=== PATIENT | female | born 1940 | race African-American/Black ===

== ENCOUNTER 2024-10-21 12:03 | Inpatient (IN) | payer MEDICARE, OTHER ==
[~2024-10-21] VITALS: Ht 154.9 cm; Wt 55.3 kg
[2024-10-21 14:08] LABS: CALCIUM, SERUM 8.6 mg/dL (8.5-10.1); CREATININE 0.6 mg/dL (0.6-1.3); POTASSIUM 4.8 mmol/L (3.5-5.1)
[2024-10-21 14:09] LABS: BASOPHILS % (AUTO) 0.4 % (0.0-2.0); EOSINOPHILS # (AUTO) 0.1 K/uL (0.0-0.7); EOSINOPHILS % (AUTO) 0.9 % (0.0-6.0); HEMATOCRIT 25 % (33-45); HEMOGLOBIN 8.3 g/dL (11.5-14.8); LYMPHOCYTES # (AUTO) 2.1 K/uL (0.8-4.8); LYMPHOCYTES % (AUTO) 32.5 % (20.0-44.0); MEAN CORPUSCULAR HEMOGLOBIN 29 PG (26.0-33.0); MEAN CORPUSCULAR HGB CONC 33 g/dl (31.0-36.0); MEAN CORPUSCULAR VOLUME 86 fL (82-100); MONOCYTES # (AUTO) 0.4 K/uL (0.1-1.30); MONOCYTES % (AUTO) 6.2 % (2.0-12.0); NEUTROPHILS # (AUTO) 3.9 K/uL (1.8-8.9); PLATELET COUNT (AUTO) 295 K/uL (150-450); RED BLOOD CELL COUNT(AUTO) 2.91 MIL/uL (4.0-5.2); WHITE BLOOD COUNT (AUTO) 6.5 K/uL (4.3-11.0)
[2024-10-21 14:14] LABS: BILIRUBIN,TOTAL 0.2 mg/dL (0.2-1.0); TOTAL PROTEIN, SERUM 5.9 g/dL (6.4-8.2)
[2024-10-21 14:15] LABS: INR 1.04 (0.91-1.10); PARTIAL THROMBOPLASTIN TIME 25.8 SEC (24.3-34.3)
[2024-10-21 14:50] LABS: NT-PRO BNP 372 pg/mL (0-125)
[2024-10-21] MEDS ORDERED: ASPI-1169 PO (17:10)
[2024-10-21] MEDS ORDERED: SITA100T PO (17:10)
[2024-10-21] MEDS ORDERED: AMLO10TA4 PO (17:10)
[2024-10-21] MEDS ORDERED: ACET-2030 PO (17:10)
[2024-10-21] MEDS ORDERED: INSU100I4 SQ (17:10)
[2024-10-21] MEDS ORDERED: MUPI22OI7 TP (17:10)
[2024-10-21] MEDS ORDERED: APIX2.5T PO (17:10)
[2024-10-21] MEDS ORDERED: INSU100V7 SQ (17:10)
[2024-10-21] MEDS ORDERED: GABA100C PO (17:10)
[2024-10-21] MEDS ORDERED: FAMO20TA80 PO (17:10)
[2024-10-21] MEDS ORDERED: ATOR20TA PO (17:10)
[2024-10-21] MEDS ORDERED: TRAM50TA2 PO (17:10)
[2024-10-21] MEDS ORDERED: DOCU100T2 PO (17:10)
[2024-10-21] MEDS ORDERED: GABAPENTIN 100 MG CAPSULE PO PRN (17:30)
[2024-10-21] MEDS ORDERED: ZOLPIDEM TARTRATE 5 MG TABLET PO PRN (17:30)
[2024-10-21] MEDS ORDERED: MUPIROCIN OINT 2% 22 GM TUBE TP SCH (17:30)
[2024-10-21] MEDS ORDERED: DEXTROSE 50%-WATER 50 ML DISP.SYRIN IV PRN (17:30)
[2024-10-21] MEDS ORDERED: ONDANSETRON HCL/PF 4 MG/2 ML VIAL IVP PRN (17:30)
[2024-10-21] MEDS ORDERED: MAG HYDROX/AL HYDROX/SIMETH 30 ML UDC PO PRN (17:30)
[2024-10-21] MEDS ORDERED: Z GUARD REMEDY 4 OZ OINT TP PRN (17:30)
[2024-10-21] MEDS ORDERED: ACETAMINOPHEN 325 MG TABLET PO PRN (17:30)
[2024-10-21] MEDS: PANTOPRAZOLE 80 MG in IV NS 0.9% 500 ML IV ONE (17:31)
[2024-10-21] MEDS: TRAMADOL HCL 50 MG TABLET PO SCH (18:00)
[2024-10-21] MEDS: BLOOD SUGAR DIAGNOSTIC 1 EACH STRIP VI SCH (18:20)
[2024-10-21] MEDS: *INSULIN REGULAR(HUMULIN R)HUM 100 UNIT/ML VIAL SQ PRN (18:21)
[2024-10-21 18:46] VITALS: BP 169/64; TEMP 97.7; O2SAT 100
[2024-10-21] MEDS: ATORVASTATIN 10 MG TABLET PO SCH (21:27)
[2024-10-21] MEDS: MAGNESIUM HYDROXIDE 30 ML UDC PO PRN (21:38)
[2024-10-22] MEDS: ACETAMINOPHEN ES 500 MG TABLET PO PRN (04:25)
[2024-10-22 07:24] LABS: BASOPHILS % (AUTO) 0.4 % (0.0-2.0); EOSINOPHILS # (AUTO) 0.1 K/uL (0.0-0.7); HEMATOCRIT 21 % (33-45); HEMOGLOBIN 7.3 g/dL (11.5-14.8); LYMPHOCYTES # (AUTO) 1.5 K/uL (0.8-4.8); LYMPHOCYTES % (AUTO) 33.9 % (20.0-44.0); MEAN CORPUSCULAR HEMOGLOBIN 29 PG (26.0-33.0); MEAN CORPUSCULAR HGB CONC 34 g/dl (31.0-36.0); MEAN CORPUSCULAR VOLUME 84 fL (82-100); MONOCYTES # (AUTO) 0.4 K/uL (0.1-1.30); MONOCYTES % (AUTO) 8.8 % (2.0-12.0); NEUTROPHILS # (AUTO) 2.4 K/uL (1.8-8.9); NEUTROPHILS % (AUTO) 53.9 % (43.0-81.0); PLATELET COUNT (AUTO) 240 K/uL (150-450); RED BLOOD CELL COUNT(AUTO) 2.53 MIL/uL (4.0-5.2); RED CELL DISTRIBUTION WIDTH 16.5 % (11.5-15.0); WHITE BLOOD COUNT (AUTO) 4.5 K/uL (4.3-11.0)
[2024-10-22] MEDS: LINAGLIPTIN 5 MG TABLET PO SCH (08:31)
[2024-10-22] MEDS: AMLODIPINE BESYLATE 10 MG TABLET PO SCH (08:31)
[2024-10-22] MEDS: PANTOPRAZOLE 40 MG VIAL IV SCH (08:32)
[2024-10-22 09:20] LABS: CALCIUM, SERUM 8.2 mg/dL (8.5-10.1); CREATININE 0.7 mg/dL (0.6-1.3); MAGNESIUM 2.4 mg/dL (1.8-2.4); PHOSPHORUS 3.4 mg/dL (2.5-4.9); POTASSIUM 4.4 mmol/L (3.5-5.1)
[2024-10-22] MEDS: INSULIN REGULAR, HUMAN 100 UNIT/ML 3 ML VIAL SQ PRN (16:45)
[2024-10-22 20:00] VITALS: BP 146/60; TEMP 97.9; O2SAT 100
[2024-10-23 07:11] LABS: BASOPHILS % (AUTO) 0.5 % (0.0-2.0); EOSINOPHILS # (AUTO) 0.2 K/uL (0.0-0.7); HEMATOCRIT 22 % (33-45); HEMOGLOBIN 7.3 g/dL (11.5-14.8); LYMPHOCYTES # (AUTO) 1.7 K/uL (0.8-4.8); LYMPHOCYTES % (AUTO) 33.5 % (20.0-44.0); MEAN CORPUSCULAR HEMOGLOBIN 28 PG (26.0-33.0); MEAN CORPUSCULAR HGB CONC 33 g/dl (31.0-36.0); MEAN CORPUSCULAR VOLUME 85 fL (82-100); MONOCYTES # (AUTO) 0.3 K/uL (0.1-1.30); MONOCYTES % (AUTO) 6.5 % (2.0-12.0); NEUTROPHILS # (AUTO) 2.9 K/uL (1.8-8.9); NEUTROPHILS % (AUTO) 56.5 % (43.0-81.0); PLATELET COUNT (AUTO) 243 K/uL (150-450); RED BLOOD CELL COUNT(AUTO) 2.59 MIL/uL (4.0-5.2); WHITE BLOOD COUNT (AUTO) 5.2 K/uL (4.3-11.0)
[2024-10-23 07:19] LABS: CALCIUM, SERUM 8.2 mg/dL (8.5-10.1); CREATININE 0.6 mg/dL (0.6-1.3); MAGNESIUM 2.6 mg/dL (1.8-2.4); PHOSPHORUS 3.4 mg/dL (2.5-4.9); POTASSIUM 4.7 mmol/L (3.5-5.1)
[2024-10-23 07:30] VITALS: BP_SYST 126; BP_SYST 155; BP_DIAS 58; BP_DIAS 59; TEMP 98.2; TEMP 98.4; O2SAT 96; O2SAT 99
[2024-10-23] MEDS ORDERED: PANTOPRAZOLE 40 MG TABLET.DR PO SCH (09:00)
[2024-10-23 16:00] VITALS: BP 116/63; TEMP 98.4; O2SAT 95
[2024-10-23 20:27] VITALS: BP 140/60; TEMP 97.9; O2SAT 98
[2024-10-23] MEDS ORDERED: CEFEPIME 1 GM VIAL ONE (22:59)
[2024-10-23] MEDS: CEFEPIME 1 GM in IV D5W 50 ML IV SCH (23:07)
[2024-10-24] MEDS ORDERED: VANCOMYCIN 1 GM /D5W 250 ML PB IV ONE (00:02)
[2024-10-24] MEDS: VANCOMYCIN 1 GM in IV NS 0.9% 250 ML IV ONE (00:10)
[2024-10-24 07:50] LABS: BASOPHILS % (AUTO) 0.3 % (0.0-2.0); EOSINOPHILS # (AUTO) 0.2 K/uL (0.0-0.7); HEMATOCRIT 22 % (33-45); HEMOGLOBIN 7.3 g/dL (11.5-14.8); LYMPHOCYTES # (AUTO) 1.8 K/uL (0.8-4.8); LYMPHOCYTES % (AUTO) 31.5 % (20.0-44.0); MEAN CORPUSCULAR HEMOGLOBIN 28 PG (26.0-33.0); MEAN CORPUSCULAR HGB CONC 33 g/dl (31.0-36.0); MEAN CORPUSCULAR VOLUME 86 fL (82-100); MONOCYTES # (AUTO) 0.4 K/uL (0.1-1.30); MONOCYTES % (AUTO) 6.7 % (2.0-12.0); NEUTROPHILS # (AUTO) 3.3 K/uL (1.8-8.9); NEUTROPHILS % (AUTO) 58.5 % (43.0-81.0); PLATELET COUNT (AUTO) 282 K/uL (150-450); RED BLOOD CELL COUNT(AUTO) 2.61 MIL/uL (4.0-5.2); WHITE BLOOD COUNT (AUTO) 5.6 K/uL (4.3-11.0)
[2024-10-24 08:04] LABS: CALCIUM, SERUM 8.2 mg/dL (8.5-10.1); CREATININE 0.6 mg/dL (0.6-1.3); MAGNESIUM 2.6 mg/dL (1.8-2.4); PHOSPHORUS 3.5 mg/dL (2.5-4.9); POTASSIUM 4.6 mmol/L (3.5-5.1)
[2024-10-24 08:41] VITALS: BP 158/65; TEMP 98.2; O2SAT 100
[2024-10-24] MEDS: PANTOPRAZOLE 40 MG TABLET.DR PO SCH (09:03)
[2024-10-24] MEDS: CEFEPIME 2 GM in IV D5W 100 ML IV SCH (09:03)
[2024-10-24] MEDS: VANCOMYCIN 500 MG in IV D5W 100ml IV SCH (12:37)
[2024-10-24] MEDS ORDERED: GADOTERATE MEGLUMINE 10 MMOL/20 ML VIAL IV ONE (14:15)
[2024-10-24 16:17] VITALS: BP 128/46; TEMP 97.8; O2SAT 96
[2024-10-24 18:00] VITALS: BP_SYST 129; BP_SYST 133; BP_SYST 94; BP_DIAS 57; BP_DIAS 58; BP_DIAS 81
[2024-10-24 20:00] VITALS: BP 106/63; TEMP 98.1; O2SAT 97
[2024-10-25 08:01] LABS: BASOPHILS % (AUTO) 0.4 % (0.0-2.0); EOSINOPHILS # (AUTO) 0.2 K/uL (0.0-0.7); EOSINOPHILS % (AUTO) 3.6 % (0.0-6.0); HEMATOCRIT 23 % (33-45); HEMOGLOBIN 7.7 g/dL (11.5-14.8); LYMPHOCYTES # (AUTO) 1.3 K/uL (0.8-4.8); MEAN CORPUSCULAR HEMOGLOBIN 29 PG (26.0-33.0); MEAN CORPUSCULAR HGB CONC 33 g/dl (31.0-36.0); MEAN CORPUSCULAR VOLUME 87 fL (82-100); MONOCYTES # (AUTO) 0.4 K/uL (0.1-1.30); MONOCYTES % (AUTO) 7.9 % (2.0-12.0); NEUTROPHILS # (AUTO) 3.4 K/uL (1.8-8.9); NEUTROPHILS % (AUTO) 64.1 % (43.0-81.0); PLATELET COUNT (AUTO) 270 K/uL (150-450); RED BLOOD CELL COUNT(AUTO) 2.69 MIL/uL (4.0-5.2); RED CELL DISTRIBUTION WIDTH 15.8 % (11.5-15.0); WHITE BLOOD COUNT (AUTO) 5.2 K/uL (4.3-11.0)
[2024-10-25 08:29] LABS: CALCIUM, SERUM 8.6 mg/dL (8.5-10.1); CREATININE 0.7 mg/dL (0.6-1.3); MAGNESIUM 2.6 mg/dL (1.8-2.4); PHOSPHORUS 3.8 mg/dL (2.5-4.9); POTASSIUM 4.9 mmol/L (3.5-5.1)
[2024-10-25 08:34] VITALS: BP 158/68; TEMP 98.6; O2SAT 98
[2024-10-25 16:10] VITALS: BP 132/60; TEMP 98.4; O2SAT 99
[2024-10-25 20:00] VITALS: BP 123/60; TEMP 98.1; O2SAT 98
[2024-10-26 07:26] LABS: CREATININE 0.8 mg/dL (0.6-1.3); POTASSIUM 5.1 mmol/L (3.5-5.1)
[2024-10-26 07:30] VITALS: BP 158/67; TEMP 98.4; O2SAT 100
[2024-10-26 16:00] VITALS: BP 138/58; TEMP 98.2; O2SAT 100
[2024-10-26 20:00] VITALS: BP 140/58; TEMP 97.9; O2SAT 99
[2024-10-26] MEDS: VANCOMYCIN 750 MG in IV D5W 250 ML IV SCH (21:31)
[2024-10-27] VITALS (9 sets, daily range): BP systolic 123–160; BP diastolic 49–68; TEMP 97.9–98.4; O2SAT 99–100
[2024-10-27 07:59] LABS: ALBUMIN 2.4 g/dL (3.4-5.0); BASOPHILS % (AUTO) 0.4 % (0.0-2.0); BILIRUBIN,TOTAL 0.3 mg/dL (0.2-1.0); CALCIUM, SERUM 8.4 mg/dL (8.5-10.1); CREATININE 0.6 mg/dL (0.6-1.3); EOSINOPHILS # (AUTO) 0.4 K/uL (0.0-0.7); EOSINOPHILS % (AUTO) 7.9 % (0.0-6.0); LYMPHOCYTES # (AUTO) 1.2 K/uL (0.8-4.8); MAGNESIUM 2.4 mg/dL (1.8-2.4); MEAN CORPUSCULAR HEMOGLOBIN 28 PG (26.0-33.0); MEAN CORPUSCULAR HGB CONC 34 g/dl (31.0-36.0); MEAN CORPUSCULAR VOLUME 83 fL (82-100); MONOCYTES # (AUTO) 0.5 K/uL (0.1-1.30); NEUTROPHILS # (AUTO) 2.8 K/uL (1.8-8.9); NEUTROPHILS % (AUTO) 56.7 % (43.0-81.0); PHOSPHORUS 3.4 mg/dL (2.5-4.9); PLATELET COUNT (AUTO) 273 K/uL (150-450); POTASSIUM 4.4 mmol/L (3.5-5.1); RED BLOOD CELL COUNT(AUTO) 2.34 MIL/uL (4.0-5.2); RED CELL DISTRIBUTION WIDTH 15.6 % (11.5-15.0); TOTAL PROTEIN, SERUM 5.3 g/dL (6.4-8.2); WHITE BLOOD COUNT (AUTO) 4.9 K/uL (4.3-11.0)
[2024-10-27 08:13] LABS: HEMATOCRIT 19 % (33-45); HEMOGLOBIN 6.6 g/dL (11.5-14.8)
[2024-10-27 10:35] LABS: ANISOCYTOSIS 1+; EOSINOPHILS % (MANUAL) 13 % (0-4); HYPOCHROMASIA 1+; LYMPHOCYTES % (MANUAL) 26 % (16-48); MONOCYTES % (MANUAL) 2 % (0-11.0); NEUTROPHILS % (MANUAL) 59 (42-76); PLATELET ESTIMATE ADEQUATE
[2024-10-27 20:29] LABS: BASOPHILS % (AUTO) 0.4 % (0.0-2.0); EOSINOPHILS # (AUTO) 0.4 K/uL (0.0-0.7); HEMATOCRIT 26 % (33-45); HEMOGLOBIN 8.6 g/dL (11.5-14.8); LYMPHOCYTES # (AUTO) 1.3 K/uL (0.8-4.8); LYMPHOCYTES % (AUTO) 18.3 % (20.0-44.0); MEAN CORPUSCULAR HEMOGLOBIN 28 PG (26.0-33.0); MEAN CORPUSCULAR HGB CONC 33 g/dl (31.0-36.0); MEAN CORPUSCULAR VOLUME 83 fL (82-100); MONOCYTES # (AUTO) 0.8 K/uL (0.1-1.30); MONOCYTES % (AUTO) 11.2 % (2.0-12.0); NEUTROPHILS # (AUTO) 4.7 K/uL (1.8-8.9); NEUTROPHILS % (AUTO) 65.1 % (43.0-81.0); PLATELET COUNT (AUTO) 286 K/uL (150-450); RED BLOOD CELL COUNT(AUTO) 3.12 MIL/uL (4.0-5.2); RED CELL DISTRIBUTION WIDTH 16.9 % (11.5-15.0); WHITE BLOOD COUNT (AUTO) 7.2 K/uL (4.3-11.0)
[2024-10-28 07:31] LABS: ALBUMIN 2.4 g/dL (3.4-5.0); BILIRUBIN,TOTAL 0.3 mg/dL (0.2-1.0); CALCIUM, SERUM 8.3 mg/dL (8.5-10.1); CREATININE 0.7 mg/dL (0.6-1.3); MAGNESIUM 2.2 mg/dL (1.8-2.4); PHOSPHORUS 2.8 mg/dL (2.5-4.9); POTASSIUM 5.4 mmol/L (3.5-5.1); TOTAL PROTEIN, SERUM 5.5 g/dL (6.4-8.2)
[2024-10-28 07:45] LABS: BASOPHILS % (AUTO) 0.5 % (0.0-2.0); EOSINOPHILS # (AUTO) 0.4 K/uL (0.0-0.7); EOSINOPHILS % (AUTO) 7.8 % (0.0-6.0); HEMATOCRIT 24 % (33-45); HEMOGLOBIN 8.3 g/dL (11.5-14.8); LYMPHOCYTES # (AUTO) 1.4 K/uL (0.8-4.8); LYMPHOCYTES % (AUTO) 24.9 % (20.0-44.0); MEAN CORPUSCULAR HEMOGLOBIN 28 PG (26.0-33.0); MEAN CORPUSCULAR HGB CONC 34 g/dl (31.0-36.0); MEAN CORPUSCULAR VOLUME 82 fL (82-100); MONOCYTES # (AUTO) 0.7 K/uL (0.1-1.30); MONOCYTES % (AUTO) 12.3 % (2.0-12.0); NEUTROPHILS % (AUTO) 54.5 % (43.0-81.0); PLATELET COUNT (AUTO) 285 K/uL (150-450); RED BLOOD CELL COUNT(AUTO) 2.98 MIL/uL (4.0-5.2); RED CELL DISTRIBUTION WIDTH 16.7 % (11.5-15.0); WHITE BLOOD COUNT (AUTO) 5.6 K/uL (4.3-11.0)
[2024-10-28 08:00] VITALS: BP 130/83; TEMP 97.7; O2SAT 99
[2024-10-28 08:42] VITALS: BP 130/83
[2024-10-28 11:46] LABS: APPEARANCE,URINE CLEAR (CLEAR); BILIRUBIN,URINE NEGATIVE (NEGATIVE); BLOOD, URINE TRACE-INTA Ery/uL (NEGATIVE); COLOR,URINE YELLOW (YELLOW); KETONES,URINE NEGATIVE (NEGATIVE); LEUKOCYTE ESTERASE ,URINE NEGATIVE (NEGATIVE); NITRITE, URINE NEGATIVE (NEGATIVE); PH,URINE 6.5 (5.0-8.0); PROTEIN,URINE 1+ mg/dl (NEGATIVE); UGLUCOSE NEGATIVE (NEGATIVE); UROBILINOGEN,URINE 0.2 EU/dL (0.2)
[2024-10-28 12:01] LABS: CREATININE, URINE < 13.0 MG/DL (30.0-125.0); URINE SODIUM, RANDOM 32 mmol/l (40-220); URINE TOTAL PROTEIN 50.9 mg/dL (0-11.9)
[2024-10-28 13:17] LABS: EOSINOPHIL,URINE None Seen
[2024-10-28 14:06] LABS: ADD URINE CULTURE NO; BACTERIA,URINE None seen /HPF (None Seen); RBC,URINE 0-2 /HPF (0-2); SQUAMOUS EPITHELIAL CELL,UR Rare /HPF (None Seen); WBC,URINE NONE SEEN /HPF (0-3)
[2024-10-28] MEDS ORDERED: VANCOMYCIN 750 MG in IV D5W 250 ML IV SCH (22:00)
== END 2024-10-28 17:00 | disposition home health service (06) | DRG 565 ==
LOC: ER 14:52 → TELE 17:06 → MED 10-22 10:30
PROVIDERS: ADMIT Student in an Organized Health Care Education/Training Program; ATTEND Student in an Organized Health Care Education/Training Program
PROC: 05HB33Z Insertion of Infusion Device into Right Basilic Vein, Percutaneous Approach (ICD-10-PCS; principal; 2024-10-24)
PROC: 30233N1 Transfusion of Nonautologous Red Blood Cells into Peripheral Vein, Percutaneous Approach (ICD-10-PCS; 2024-10-28)
DX: T87.43 Infection of amputation stump, right lower extremity (principal); E87.1 Hypo-osmolality and hyponatremia; M84.674A Pathological fracture in other disease, right foot, initial encounter for fracture; L98.496 Non-pressure chronic ulcer of skin of other sites with bone involvement without evidence of necrosis; M86.371 Chronic multifocal osteomyelitis, right ankle and foot; L02.611 Cutaneous abscess of right foot; D64.9 Anemia, unspecified; E11.69 Type 2 diabetes mellitus with other specified complication; Z89.411 Acquired absence of right great toe; Z89.421 Acquired absence of other right toe(s); Z96.652 Presence of left artificial knee joint; Z79.4 Long term (current) use of insulin; Z79.84 Long term (current) use of oral hypoglycemic drugs; Z79.82 Long term (current) use of aspirin; Z79.01 Long term (current) use of anticoagulants; E11.51 Type 2 diabetes mellitus with diabetic peripheral angiopathy without gangrene; E78.5 Hyperlipidemia, unspecified; E87.5 Hyperkalemia; M89.8X9 Other specified disorders of bone, unspecified site; Z82.49 Family history of ischemic heart disease and other diseases of the circulatory system; I10 Essential (primary) hypertension; E11.622 Type 2 diabetes mellitus with other skin ulcer; Z83.3 Family history of diabetes mellitus; B96.89 Other specified bacterial agents as the cause of diseases classified elsewhere; R19.5 Other fecal abnormalities; Z66 Do not resuscitate
CPT/HCPCS: 36415; 71045-TC; 73630-TC; 73720-TC; 73721-TC; 80048-TC; 80053-TC; 80202-TC; 81001; 82570-TC; 82962-TC; 83735-TC; 83880; 83935-TC; 84100-TC; 84300-TC; 84484-TC; 85025-TC; 85730-TC; 86850-TC; 93970-TC; A4223; A6253; A6403; A6407; A9575; G0378; J0692; J1815; J2470; J3370; J3371; J7040; J7050; J7060; P9016

== ENCOUNTER 2025-04-04 11:06 | Outpatient (CLI) | payer MEDICARE, OTHER ==
[~2025-04-04 11:06] MED LIST: ACET-2030 PO; AMLO10TA4 PO; APIX2.5T PO; ASPI-1169 PO; ATOR20TA PO; DOCU100T2 PO; FAMO20TA80 PO; GABA100C PO; INSU100I4 SQ; INSU100V7 SQ; MUPI22OI7 TP; SITA100T PO; TRAM50TA2 PO
[2025-04-04] MEDS ORDERED: LIDOCAINE SOLN 4% 50 ML BOTTLE ONE (11:12)
[2025-04-04] MEDS ORDERED: UREA 10% -AHA 4% CREAM 57 GM TUBE ONE (11:28)
[2025-04-04] MEDS ORDERED: HYDROCORTISONE 1% CREAM 28.35 GM TUBE TP ONE (11:28)
[2025-04-04] MEDS ORDERED: GENTAMICIN 0.1% CREAM 15 GM TUBE ONE (11:29)
[2025-04-04] MEDS ORDERED: CLOTRIMAZOLE 1% 15 GM TUBE TP ONE (11:29)
== END 2025-04-04 23:59 | disposition home health service (06) ==
LOC: WOU 11:06
PROVIDERS: ATTEND Podiatrist Foot & Ankle Surgery
DX: E11.621 Type 2 diabetes mellitus with foot ulcer (principal); L97.415 Non-pressure chronic ulcer of right heel and midfoot with muscle involvement without evidence of necrosis; Z79.4 Long term (current) use of insulin; Z79.84 Long term (current) use of oral hypoglycemic drugs; M79.671 Pain in right foot; M79.81 Nontraumatic hematoma of soft tissue; L60.2 Onychogryphosis; B35.3 Tinea pedis
CPT/HCPCS: 11043; A6253